=== PATIENT | female | born 1945 | race American Indian/Alaskan Native ===

== ENCOUNTER 2020-04-04 16:38 | Outpatient (CLI) | payer OTHER, BC ==
[~2020-04-04 16:38] MED LIST: CATAFLAM50 MG PO
== END 2020-04-04 16:44 | disposition home or self-care (01) ==
LOC: LAB 16:38
PROVIDERS: ATTEND Urology
DX: N30.00 Acute cystitis without hematuria (principal)

== ENCOUNTER 2022-05-13 16:06 | Outpatient (CLI) | payer OTHER, BC | END 2022-05-13 16:11 | disposition home or self-care (01) | LOC: LAB 16:06 | PROVIDERS: ATTEND Specialist | DX: L02.91 Cutaneous abscess, unspecified (principal) ==

== ENCOUNTER 2022-05-16 08:33 | Outpatient (CLI) | payer OTHER, BC | END 2022-05-16 09:00 | disposition home or self-care (01) | LOC: WOUND MED 08:33 | PROVIDERS: ATTEND Specialist | DX: L89.899 Pressure ulcer of other site, unspecified stage (principal) ==

== ENCOUNTER 2022-05-16 09:48 | Outpatient (CLI) | payer OTHER, BC | END 2022-05-16 09:50 | disposition home or self-care (01) | LOC: NUCLEAR 09:48 | PROVIDERS: ATTEND Internal Medicine | DX: L03.116 Cellulitis of left lower limb (principal) ==

== ENCOUNTER 2022-05-20 09:37 | Outpatient (CLI) | payer OTHER, BC | END 2022-05-20 10:00 | disposition home or self-care (01) | LOC: WOUND MED 09:37 | PROVIDERS: ATTEND Surgery | DX: L97.522 Non-pressure chronic ulcer of other part of left foot with fat layer exposed (principal) ==

== ENCOUNTER 2022-05-23 08:56 | Outpatient (CLI) | payer OTHER, BC | END 2022-05-23 09:32 | disposition home or self-care (01) | LOC: WOUND MED 08:56 | PROVIDERS: ATTEND Surgery | DX: L89.899 Pressure ulcer of other site, unspecified stage (principal) | CPT/HCPCS: 11042; A4927; A6219; A6223 ==

== ENCOUNTER 2022-05-23 09:48 | Outpatient (CLI) | payer OTHER, BC | END 2022-05-23 09:50 | disposition home or self-care (01) | LOC: NUCLEAR 09:48 | PROVIDERS: ATTEND Internal Medicine | DX: L03.116 Cellulitis of left lower limb (principal) ==

== ENCOUNTER 2022-05-27 09:31 | Outpatient (CLI) | payer OTHER, BC | END 2022-05-27 10:00 | disposition home or self-care (01) | LOC: WOUND MED 09:31 | PROVIDERS: ATTEND Specialist | DX: L89.899 Pressure ulcer of other site, unspecified stage (principal) ==

== ENCOUNTER 2022-06-03 09:26 | Outpatient (CLI) | payer OTHER, BC | END 2022-06-03 14:59 | disposition home or self-care (01) | LOC: WOUND MED 09:26 | PROVIDERS: ATTEND Specialist | DX: L89.899 Pressure ulcer of other site, unspecified stage (principal) | CPT/HCPCS: 11042; A4927; A6222; A6223; A6251 ==

== ENCOUNTER 2022-06-10 08:57 | Outpatient (CLI) | payer OTHER, BC | END 2022-06-10 10:00 | disposition home or self-care (01) | LOC: WOUND MED 08:57 | PROVIDERS: ATTEND Specialist | DX: L89.899 Pressure ulcer of other site, unspecified stage (principal) | CPT/HCPCS: 11042; A4927; A6219; A6223 ==

== ENCOUNTER 2022-06-13 10:09 | Outpatient (CLI) | payer OTHER, BC | END 2022-06-13 10:30 | disposition home or self-care (01) | LOC: WOUND MED 10:09 | PROVIDERS: ATTEND Specialist | DX: L97.422 Non-pressure chronic ulcer of left heel and midfoot with fat layer exposed (principal) | CPT/HCPCS: 97602; A4927; A6219; A6223; A6251 ==

== ENCOUNTER 2022-06-17 10:30 | Outpatient (CLI) | payer OTHER, BC | END 2022-06-17 11:00 | disposition home or self-care (01) | LOC: WOUND MED 10:30 | PROVIDERS: ATTEND Specialist | DX: L89.899 Pressure ulcer of other site, unspecified stage (principal) | CPT/HCPCS: 11042; A4927; A6219; A6223; A6251 ==

== ENCOUNTER 2022-11-26 19:16 | Emergency (ER) | payer OTHER, BC ==
[~2022-11-26] VITALS: Ht 157.5 cm; Wt 83.9 kg
[2022-11-26] MEDS ORDERED: OMEGA 3 1,0001 EACH PO (19:49)
[2022-11-26] MEDS ORDERED: KLOR-CON M1010 MEQ (19:50)
[2022-11-26] MEDS ORDERED: BENAZEPRIL HCL20 MG (19:50)
[2022-11-26] MEDS ORDERED: TOPROL XL50 M1 (19:51)
[2022-11-26] MEDS ORDERED: LEVO-T150 MCG PO (19:52)
[2022-11-26] MEDS ORDERED: ALLER-TEC10 MG (19:52)
[2022-11-26] MEDS ORDERED: ATORVASTATIN CA20 MG PO (19:52)
[2022-11-27] MEDS ORDERED: XARELTO20 MG PO (13:11)
[2022-11-27] MEDS ORDERED: XARELTO15 MG PO (13:11)
== END 2022-11-26 21:33 | disposition home or self-care (01) ==
LOC: ER 19:16
DX: M79.89 Other specified soft tissue disorders (principal); I10 Essential (primary) hypertension; E03.8 Other specified hypothyroidism

== ENCOUNTER 2022-11-27 08:27 | Emergency (ER) | payer OTHER, BC ==
[~2022-11-27] VITALS: Ht 157.5 cm; Wt 81.6 kg
[~2022-11-27 08:27] MED LIST changes: +ALLER-TEC10 MG; +ATORVASTATIN CA20 MG PO; +BENAZEPRIL HCL20 MG; +KLOR-CON M1010 MEQ; +LEVO-T150 MCG PO; +OMEGA 3 1,0001 EACH PO; +TOPROL XL50 M1
[2022-11-27] MEDS ORDERED: XARELTO20 MG PO (13:11)
[2022-11-27] MEDS ORDERED: XARELTO15 MG PO (13:11)
== END 2022-11-27 13:26 | disposition home or self-care (01) ==
LOC: ER 08:27
DX: I82.409 Acute embolism and thrombosis of unspecified deep veins of unspecified lower extremity (principal); M79.605 Pain in left leg; I10 Essential (primary) hypertension

== ENCOUNTER 2022-11-28 14:59 | Emergency (ER) | payer OTHER, BC ==
[~2022-11-28] VITALS: Ht 157.5 cm; Wt 83.9 kg
[~2022-11-28 14:59] MED LIST changes: +XARELTO15 MG PO; +XARELTO20 MG PO
== END 2022-11-28 17:41 | disposition home or self-care (01) ==
LOC: ER 14:59
DX: I82.409 Acute embolism and thrombosis of unspecified deep veins of unspecified lower extremity (principal); M79.606 Pain in leg, unspecified; I10 Essential (primary) hypertension

== ENCOUNTER 2022-12-03 23:08 | Emergency (ER) | payer OTHER, BC ==
[~2022-12-03] VITALS: Ht 157.5 cm; Wt 83.9 kg
== END 2022-12-04 16:01 | disposition home or self-care (01) ==
LOC: ER 23:08
DX: M79.662 Pain in left lower leg (principal); Z86.718 Personal history of other venous thrombosis and embolism